=== PATIENT | female | born 1975 | race Caucasian/White ===

== ENCOUNTER → 2020-03-15 | Outpatient (CLI) | payer BC ==
[~2020-03-15] MED LIST: CLARITIN 1010 MG/TAB PO; FLONASE NASAL S16 GM NS; PROVENTIL0.09 MG/A1 IH
== END ==
LOC: MC.RAD 01-14 11:15
DX: Z12.31 Encounter for screening mammogram for malignant neoplasm of breast (principal); N63.10 Unspecified lump in the right breast, unspecified quadrant

== ENCOUNTER → 2020-03-24 | Outpatient (CLI) | payer BC | LOC: MC.RAD 12:57 | DX: N63.10 Unspecified lump in the right breast, unspecified quadrant (principal) ==

== ENCOUNTER 2020-04-06 01:23 | Emergency (ER) | payer BC ==
[~2020-04-06] VITALS: Ht 170.2 cm; Wt 75.5 kg
[2020-04-06 01:50] LABS: COLLECTION METHOD CLEAN CATCH
[2020-04-06 02:00] LABS: MUCOUS Present /lpf; PH 6 (5-8); SQUAMOUS EPITHELIAL None Seen /hpf; URINE APPEARANCE Turbid; URINE BACTERIA None Seen /hpf; URINE BILIRUBIN Negative (NEGATIVE); URINE BLOOD 3+ (NEGATIVE); URINE COLOR Yellow; URINE GLUCOSE Negative (NEGATIVE); URINE KETONE 2+ (NEGATIVE); URINE LEUKOCYTE ESTERASE 2+ (NEGATIVE); URINE NITRATE Negative (NEGATIVE); URINE PROTEIN(semi-quant) 2+ (NEGATIVE); URINE RBC >50 /hpf
[2020-04-06] MEDS ORDERED: BACTRIM DS 8001 TAB PO (03:35)
[2020-04-06 03:39] LABS: BASO % 0.3 % (0.0-2.0); EOS # 0.1 (0.0-0.7); GRAN # 11.1 (1.4-6.5); GRAN % 79.6 % (42.2-75.2); HEMOGLOBIN 12.9 g/dl (12.5-16.0); LYMPH # 1.7 (1.2-3.4); LYMPH % 12.4 % (20.0-51.0); MEAN CELL VOLUME 90 fl (80.0-100.0); MEAN CORPUSCULAR HEMOGLOBIN 32 pg (27.0-31.0); MEAN CORPUSCULAR HGB CONC 36 g/dl (33.0-37.0); MEAN PLATELET VOLUME 10.6 fl (7.4-10.4); MONO # 0.9 (0.1-0.6); MONO % 6.3 % (1.7-9.3); PLATELET COUNT 239 K/mm3 (130-400); RED BLOOD COUNT 4.03 M/mm3 (4.10-5.30); REDCELL DISTRIBUTION WIDTH-CV 11.7 % (11.5-14.5)
[2020-04-06 03:44] LABS: HEMATOCRIT 36.2 % (37.0-47.0)
[2020-04-06 04:12] LABS: ALBUMIN 3.9 gm/dL (3.5-5.0); BILIRUBIN,TOTAL 0.7 mg/dL (0.0-1.0); CALCIUM 7.9 mg/dL (8.4-10.2); CREATININE, serum 0.58 (0.52-1.25); TOTAL PROTEIN 6.7 gm/dL (6.4-8.2)
[2020-04-06 05:37] VITALS: BP 138/76; PULSE 78
== END 2020-04-06 05:40 | disposition home or self-care (01) ==
LOC: COL.ER 01:23
PROVIDERS: Emergency Medicine
DX: N39.0 Urinary tract infection, site not specified (principal); N12 Tubulo-interstitial nephritis, not specified as acute or chronic; E87.1 Hypo-osmolality and hyponatremia; J45.909 Unspecified asthma, uncomplicated; Z79.51 Long term (current) use of inhaled steroids
CPT/HCPCS: J0696; J2405; J3010; J7030

== ENCOUNTER 2021-12-26 22:23 | Emergency (ER) | payer BC ==
[~2021-12-26] VITALS: Ht 170.2 cm; Wt 75.0 kg
[~2021-12-26 22:23] MED LIST changes: +BACTRIM DS 8001 TAB PO
[2021-12-26 23:04] LABS: COLLECTION METHOD CLEAN CATCH
[2021-12-26 23:16] LABS: BUDDING YEAST Present (NOT PRESENT); PH 7 (5-8); SQUAMOUS EPITHELIAL None Seen /hpf (0-10); URINE APPEARANCE Cloudy (CLEAR/HAZY); URINE BACTERIA Moderate /hpf (NONE SEEN); URINE BILIRUBIN Negative (NEGATIVE); URINE BLOOD 3+ (NEGATIVE); URINE COLOR Amber (YELLOW); URINE GLUCOSE Negative (NEGATIVE); URINE KETONE Negative (NEGATIVE); URINE LEUKOCYTE ESTERASE 3+ (NEGATIVE); URINE NITRATE Positive (NEGATIVE); URINE PROTEIN(semi-quant) 1+ (NEGATIVE); URINE RBC >50 /hpf (0-2); URINE UROBILINOGEN Negative (NEGATIVE)
[2021-12-26] MEDS ORDERED: CEFTIN500 MG PO (23:39)
[2021-12-27 00:01] VITALS: BP 118/82; PULSE 88; TEMP 98.3
== END 2021-12-27 00:01 | disposition home or self-care (01) ==
LOC: COL.ER 22:23
PROVIDERS: Emergency Medicine
DX: N39.0 Urinary tract infection, site not specified (principal); B37.9 Candidiasis, unspecified; Z32.02 Encounter for pregnancy test, result negative